=== PATIENT | female | born 1995 | race Two or more races ===

== ENCOUNTER 2017-11-30 09:31 | Emergency (ER) | payer OTHER ==
[~2017-11-30] VITALS: Ht 170.2 cm; Wt 99.8 kg
[~2017-11-30 09:31] MED LIST: CIPRO500 MG; OSEL75CA PO; TUSSI PRES-B L120 M1 PO; ZITHROMAX TRI-500 MG PO
== END 2017-11-30 10:25 | disposition home or self-care (01) ==
LOC: ER 09:31
DX: J02.8 Acute pharyngitis due to other specified organisms (principal); H66.92 Otitis media, unspecified, left ear

== ENCOUNTER 2018-04-07 19:56 | Emergency (ER) | payer OTHER ==
[~2018-04-07] VITALS: Ht 170.2 cm; Wt 99.8 kg
== END 2018-04-07 23:42 | disposition home or self-care (01) ==
LOC: ER 19:56
DX: R10.2 Pelvic and perineal pain (principal)

== ENCOUNTER 2018-07-15 11:50 | Emergency (ER) | payer OTHER ==
[~2018-07-15] VITALS: Ht 170.2 cm; Wt 103.4 kg
[2018-07-15] MEDS ORDERED: TUSSI PRES-B L120 M1 PO (14:07)
[2018-07-15] MEDS ORDERED: TESSALON PERLE100 M1 PO (14:07)
== END 2018-07-15 14:24 | disposition home or self-care (01) ==
LOC: ER 11:50
DX: R05 Cough (principal)